=== PATIENT | female | born 1990 | race Caucasian/White ===

== ENCOUNTER 2021-12-08 19:07 | Emergency (ER) | payer MEDICAID ==
[~2021-12-08] VITALS: Ht 162.6 cm; Wt 54.5 kg
[~2021-12-08 19:07] MED LIST: NO HOME MEDS
[2021-12-08 19:18] VITALS: BP 110/68
== END 2021-12-08 21:53 | disposition left against medical advice (07) ==
LOC: ER 19:08
DX: M54.9 Dorsalgia, unspecified (principal); Z53.21 Procedure and treatment not carried out due to patient leaving prior to being seen by health care provider
CPT/HCPCS: 71045

== ENCOUNTER 2022-01-06 02:44 | Emergency (ER) | payer MEDICAID ==
[~2022-01-06] VITALS: Ht 170.2 cm; Wt 68.2 kg
[2022-01-06 02:54] VITALS: BP 126/75
[2022-01-06] MEDS ORDERED: CLIN300C54 PO (03:44)
[2022-01-06] MEDS ORDERED: clindamycin 150mg capsule PO ONE (03:55)
== END 2022-01-06 04:19 | disposition left against medical advice (07) ==
LOC: ER 02:46
DX: I38 Endocarditis, valve unspecified (principal); Z86.14 Personal history of Methicillin resistant Staphylococcus aureus infection; Z79.2 Long term (current) use of antibiotics
CPT/HCPCS: 99283

== ENCOUNTER 2023-03-23 19:48 | Emergency (ER) | payer MEDICAID ==
[~2023-03-23] VITALS: Ht 162.6 cm; Wt 61.8 kg
[2023-03-23 20:33] LABS: BASOPHILS % (AUTO) 0.2 % (0-1); EOSINOPHILS % (AUTO) 0.1 % (0-6); HEMATOCRIT 36.3 % (35.0-45.0); HEMOGLOBIN 12.2 g/dl (12.0-16.0); LYMPHOCYTES # (AUTO) 0.9 X10'3 (1.1-4.8); LYMPHOCYTES % (AUTO) 11.9 % (21-51); MEAN CORPUSCULAR HEMOGLOBIN 29.1 PG (27.0-31.0); MEAN CORPUSCULAR HGB CONC 33.7 g/dL (33.0-36.5); MEAN CORPUSCULAR VOLUME 86.5 FL (78-98); MEAN PLATELET VOLUME 6.9 FL (7.4-10.4); MONOCYTES # (AUTO) 0.4 X10'3 (0-0.9); MONOCYTES % (AUTO) 4.9 % (2-12); NEUTROPHILS # (AUTO) 6.2 X10'3 (1.8-7.7); NEUTROPHILS % (AUTO) 82.9 % (42-75); PLATELET COUNT 246 X10'3 (140-440); WHITE BLOOD COUNT 7.5 X10'3 (4.5-11.0)
[2023-03-23 20:45] LABS: ALANINE AMINOTRANSFERASE 12 U/L (12-78); ALBUMIN 3.5 G/DL (3.4-5.0); ALBUMIN/GLOBULIN RATIO 0.7 (1.1-1.5); ALKALINE PHOSPHATASE 100 IU/L (46-116); ANION GAP 8 (8-16); ASPARTATE AMINO TRANSFERASE 11 U/L (10-37); BILIRUBIN,TOTAL 0.3 MG/DL (0.1-1.0); BLOOD UREA NITROGEN 7 MG/DL (7-18); BUN/CREATININE RATIO 9.2 (10.0-20.0); CALCIUM 9.2 MG/DL (8.5-10.1); CHLORIDE 98 MMOL/L (99-107); CREATININE 0.76 MG/DL (0.40-0.90); GLUCOSE 116 MG/DL (70-104); MAGNESIUM 1.7 MG/DL (1.5-2.4); POTASSIUM 3.7 MMOL/L (3.5-5.1); SODIUM 134 MMOL/L (135-145); TOTAL CARBON DIOXIDE 27.6 MMOL/L (24-32); TOTAL PROTEIN 8.3 G/DL (6.4-8.2); eGFR 88 ML/MIN
[2023-03-23] MEDS ORDERED: amox tr/potassium clavulanate 875/125mg TAB PO ONE (21:15)
[2023-03-23] MEDS ORDERED: sulfamethoxazole/trimethoprim DS (800/160mg) tablet PO ONE (21:15)
[2023-03-23 21:21] LABS: CLARITY,URINE CLOUDY (Clear); COLOR,URINE YELLOW (Yellow); GLUCOSE, URINE 100 mg/dl (Neg); KETONES,URINE NEGATIVE (Neg); LEUKOCYTE ESTERASE ,URINE NEGATIVE (Neg); NITRITES, URINE NEGATIVE (Neg); OCCULT BLOOD,URINE NEGATIVE (Neg); PROTEIN,URINE 100 mg/dl (Neg)
[2023-03-23 21:22] LABS: URINE HCG NEGATIVE (NEG)
[2023-03-23 21:27] LABS: UA COLLECTION TYPE CLN CATCH MIDSTREAM
[2023-03-23 21:28] LABS: COARSE GRANULAR CAST 0-3 /LPF (NEGATIVE); SQUAMOUS EPITHELIAL CELL,UR MANY /LPF (FEW)
[2023-03-23 21:29] LABS: BACTERIA,URINE 3+ /HPF (Neg); WBC,URINE 0-4 /HPF (0-4); YEAST FEW /HPF (NEGATIVE)
[2023-03-23 21:30] LABS: AMORPHOUS PHOSPHATES 1+; TRANSITIONAL EPI CELLS,URINE FEW /HPF
[2023-03-23] MEDS ORDERED: SULF1TAB45 PO (21:40)
[2023-03-23] MEDS ORDERED: AMOX-117 PO (21:40)
[2023-03-23 21:42] LABS: URINE AMPHETAMINE SCREEN POSITIVE (Neg); URINE BARBITUATE SCREEN NEGATIVE (Neg); URINE BENZODIAZEPINES SCREEN NEGATIVE (Neg); URINE CANNABINOID SCREEN POSITIVE (Neg); URINE COCAINE SCREEN NEGATIVE (Neg); URINE METHADONE SCREEN NEGATIVE (Neg); URINE OPIATE SCREEN NEGATIVE (Neg); URINE PHENCYCLIDINE SCREEN NEGATIVE (Neg)
[2023-03-23 22:12] VITALS: BP 108/71
== END 2023-03-23 22:14 | disposition left against medical advice (07) ==
LOC: ER 19:48
DX: L03.116 Cellulitis of left lower limb (principal); L08.9 Local infection of the skin and subcutaneous tissue, unspecified; F15.20 Other stimulant dependence, uncomplicated; Z88.5 Allergy status to narcotic agent; Z88.8 Allergy status to other drugs, medicaments and biological substances
CPT/HCPCS: 36415; 80053; 80305; 81001; 81025; 83605; 83735; 84145; 85025; 87040; 99283; A6446; A6449

== ENCOUNTER 2024-01-31 07:06 | Emergency (ER) | payer MEDICAID ==
[~2024-01-31] VITALS: Ht 162.6 cm; Wt 74.0 kg
[2024-01-31 07:19] VITALS: BP 99/60; PULSE 63; RESP 16; TEMP 98; O2SAT 98
[2024-01-31] MEDS ORDERED: CEPH-585 PO (07:44)
[2024-01-31] MEDS ORDERED: SULF1TAB45 PO (07:44)
== END 2024-01-31 08:04 | disposition home or self-care (01) ==
LOC: ER 07:07
DX: L03.116 Cellulitis of left lower limb (principal); F17.210 Nicotine dependence, cigarettes, uncomplicated; F15.90 Other stimulant use, unspecified, uncomplicated; Z79.899 Other long term (current) drug therapy; Z88.8 Allergy status to other drugs, medicaments and biological substances; Z79.2 Long term (current) use of antibiotics
CPT/HCPCS: 99283

== ENCOUNTER 2025-09-13 23:29 | Emergency (ER) | payer MEDICAID ==
[~2025-09-13] VITALS: Ht 165.1 cm; Wt 74.0 kg
[2025-09-13 23:37] VITALS: BP 136/93; PULSE 98; RESP 15; TEMP 96.3; O2SAT 97
--- NOTE | 2025-09-14 02:32 | Physician Documentation ---
History of Present Illness ~ Chief Complaint: Headache Stated Complaint: MEDICATION COMPLICATIONS Time Seen by MD: 02:20 Primary Medical Doctor: [facility] HPI Patient presents to the emergency room for evaluation of foot cramping. She had a Nexplanon placed two days ago and that has told that has she is having leg cramps she go to the emergency room. No current symptoms. She states immediately after she felt her foot cramps she felt her vision go blurry and feeling of tightness in her chest. These symptoms have since resolved. Patient also reports that she had a headache immediately after her surgical procedure but that has since resolved. Medication Reconciliation Allergies: Coded Allergies: acetaminophen (Verified Allergy, Unknown, 01/31/24) hydrocodone (Verified Allergy, Unknown, 01/31/24) Uncoded Allergies: BEE VENOM (Allergy, Unknown, 01/31/23) Miscellaneous Medications Home Med List (No Home Medications), (Reported) Past Medical History Past Medical History: *CARDIOVASCULAR*, Endocarditis, Cellulitis, MRSA Abscess Past Surgical History: heart valve surgery Alcohol Use: None Drug Use: methamphetamine Lives In: Home Review of Systems ROS All review of systems negative except as per HPI Physical Exam Vital Signs: Temperature: 96.3, Heart Rate: 98, Respiratory Rate: 15, BP: 136/93, Pulse Oximetry: 97, Weight: 74.000 Physical Exam General: Patient is awake, alert, oriented x4 in no acute distress. Anxious Head: Normocephalic and atraumatic. Eyes: Conjunctival normal. EOMI. PERRL. ENT: Mucous membranes moist. Neck: Supple, trachea is midline. Chest: Clear to auscultation bilaterally without rales, rhonchi, or wheezes. There is no accessory muscle use or retractions. Cardiac: RRR without murmurs, gallops, or rubs. Extremities: Mild swelling without erythema noted around surgical insertion site of patient's left medial biceps. No calf tenderness to palpation. No tenderness to palpation of feet. Bilateral lower extremities neurovascularly intact. Skin: No rash Progress Results/Orders Results/Orders Completed Orders - IMTIAZ DALAL MD Stat Ekg (09/14/25 ) Vital Signs 09/13/25 23:37 Temp 96.3 Pulse 98 Resp 15 B/P (MAP) 136/93 Pulse Ox 97 EKG/XRAY/CT/US/VASC/MRI EKG : Additional Comment EKG interpreted by myself shows time of 0254, rate 98, sinus rhythm, normal axis, no ST changes Medical Decision Making Additional information obtaine: old records Findings Patient presents to the emergency room with cramping in her right foot in the light of recent Nexplanon implant as per HPI. Differentials include but are not limited to DVT, pulmonary embolism, ACS, adverse medication reaction, allergic reaction. EKGs reassuring. Patient's chest discomfort is atypical. Patient does smoke and has been advised to stop smoking. I do not believe she is suffering from DVT given lack of symptoms at this time. No rash or wheezing and he had not feel patient is suffering from allergic reaction. Possible adverse reaction. I suspect patient may have had a mild panic attack related to feeling her foot cramping leading to her blurred vision in racing heart and subjective chest discomfort which has spontaneously resolved. Reassuring heart score of two. The need to follow up with her OBGYN discussed that has well as ER prec autions. Differential Dx:Considerations: Include: BHARDWAJ-Cluster, BHARDWAJ-Migraine, BHARDWAJ- Hypertensive, BHARDWAJ-Muscular contraction, BHARDWAJ-Post lumbar puncture, Carbon monoxide toxicity, Close head injuyr, CVA, Fever induced, Hemorrhage-Epidural, Hemorr félix-Intracerebral, Hemorrhage-Subarachnoid, Hemorrhage-Subdural, Mass lesion, Meningitis, Post-traumtic, Pseudotumor cerebri, Sinusitis, Temporal arteritis, Trigeminal neuralgia, Other Departure Disposition: 01 HOME / SELF CARE / HOMELESS Impression: Primary Impression: Foot cramps Condition: Stable Discharge Instructions: Muscle Cramps and Spasms, [id number] Additional Instructions: I feel you are safe at this juncture. Follow up with your doctor for any additional concerns of adverse reactions keeping in mind that there is a difference between correlation and causation as discussed. Referrals: NO PRIMARY CARE PROVIDER (PCP) Signature Scribe Signature: The note accurately reflects work and decisions made by me.Imtiaz Dalal MD 09/14/25 02:49 Attestation: The note accurately reflects work and decisions made by me.Imtiaz Dalal MD 09/14/25 02:49 IMTIAZ DALAL MD Sep 14, 2025 02:32
--- NOTE | 2025-09-14 02:58 | ELECTROCARDIOGRAPH REPORT ---
[facility] Test Date: 2025-09-14 Test Time: 02:54:51 Pat Name: OTTO LEMOS Department: [facility]- Patient ID: [facility]-[id number] Room: Gender: F C Python Developer: : 1990 Requested By: SARAN DELGADO Order Number: [id number] Reading MD: Dr. FREDI Dunaway Measurements Intervals [place] Rate: 98 P: 68 [place]: 154 QRS: 65 QRSD: 86 T: 62 QT: 359 QTc: 459 Interpretive Statements Sinus rhythm Probable left atrial enlargement Low voltage, precordial leads Borderline T abnormalities, anterior leads Electronically Signed On 09-15-2025 16:52:[address] FREDI Dunaway Please click the below link to view image of tracing.
== END 2025-09-14 03:12 | disposition home or self-care (01) ==
LOC: ER 23:30
DX: R25.2 Cramp and spasm (principal); F15.90 Other stimulant use, unspecified, uncomplicated; Z88.5 Allergy status to narcotic agent; Z86.14 Personal history of Methicillin resistant Staphylococcus aureus infection
CPT/HCPCS: 93005; 99283